=== PATIENT | female | born 2000 | race Caucasian/White ===

== ENCOUNTER 2023-10-19 08:09 | Outpatient (REF) | payer OTHER, SELFPAY ==
[2023-10-19 08:27] LABS: MANUAL DIFF FLAG NO
[2023-10-19 08:52] LABS: Basophils Absolute Auto 0.1 X10*3/uL (0.0-0.2); Basophils Percent Auto 0.6 % (0-2); Eosinophils Absolute Auto 0.3 X10*3/uL (0.0-0.4); Eosinophils Percent Auto 2.8 % (0-4); Hematocrit 32.3 % (37.0-47.0); Hemoglobin 9.2 g/dl (12.0-16.0); Imm Gran Abs Auto 0.03 X10*3/uL (0.00-0.03); Imm Gran Pct Auto 0.3 % (0.0-0.4); Lymphocytes Absolute Auto 2.3 X10*3/uL (1.2-4.9); Lymphocytes Percent Auto 23.8 % (20-40); Mean Corpuscular HGB Conc 28.5 g/dl (31.0-35.0); Mean Corpuscular Hemoglobin 19.8 pg (27.0-33.0); Mean Corpuscular Volume 69.6 fL (80.0-98.0); Mean Platelet Volume 9.8 fL (9.4-12.3); Monocytes Absolute Auto 0.4 X10*3/uL (0.1-1.2); Monocytes Percent Auto 4.5 % (2-11); Neutrophils Absolute Auto 6.5 x10*3/uL (2.0-8.3); Platelet Count 376 X10*3/uL (160-400); Red Blood Count 4.64 X10*6/uL (4.20-5.50); Red Cell Distribution Width 17.5 % (11.0-16.0); White Blood Count 9.5 X10*3/uL (4.8-10.8)
[2023-10-19 09:32] LABS: Alanine Aminotransferase 13 U/L (0-31); Albumin Level 4.1 g/dL (3.5-5.0); Alkaline Phosphatase 90 U/L (39-117); Anion Gap 13 (12-20); Aspartate Amino Transferase 12 U/L (5-31); Bilirubin Total 0.3 mg/dL (0.0-1.0); Blood Urea Nitrogen 13 mg/dL (9-16); Carbon Dioxide 23 mmol/L (22-29); Chloride 109 mmol/L (96-108); Cholesterol 151 mg/dL (<200); Estimated Glomerular Filt Rate > 60; Glucose Fasting 110 mg/dL (60-99); HDL Cholesterol 29 mg/dL (>40); LDL Cholesterol Calculated 100 mg/dL (<100); Sodium 141 mmol/L (135-145); Total Protein 7.4 g/dL (6.5-8.0); Triglycerides 114 mg/dL (<150)
[2023-10-19 09:34] LABS: Estimated Average Glucose 108 mg/dL; Hemoglobin A1c % 5.4 % (<6.0)
[2023-10-19 09:49] LABS: Free T4 (Free Thyroxine) 0.91 ng/dL (0.71-1.85); Thyroid Stimulating Hormone 1.02 uIU/mL (0.32-4.0); Vitamin D 25-OH Total 23.5 ng/mL (>30)
[2023-10-19 09:57] LABS: Vitamin B12 629 pg/mL (200-900)
[2023-10-19 10:12] LABS: Iron 21 mcg/dL (30-160); Percent Iron Saturation 6 % (15-50); Total Iron Binding Capacity 346 mcg/dL (228-428); Unsaturated Iron Binding 325 ug/dL
[2023-10-19 10:14] LABS: Band Neutrophils Percent 4 % (3-5); Basophils Abs Manual 0.1 X10*3/uL (0.0-0.2); Basophils Percent Manual 1 % (0-2); Eosinophils Absolute Manual 0.4 X10*3/uL (0.0-0.4); Eosinophils Percent Manual 4 % (0-4); Lymphocytes Absolute Manual 2.1 X10*3/uL (1.2-4.9); Lymphocytes Percent Manual 22 % (20-40); Monocytes Absolute Manual 0.5 X10*3/uL (0.1-1.2); Monocytes Percent Manual 5 % (2-11); Neutrophils Absolute Manual 6.5 X10*3/uL (2.0-8.3); Neutrophils Percent Manual 64 % (45-73)
[2023-10-19 10:17] LABS: Hypochromasia 1+ (5-14) /OIF; Microcytosis 1+ (5-14) /OIF; Ovalocytes 1+ (5-14) /OIF; RBC Morphology NOTED
[2023-10-19 10:18] LABS: Platelet Estimate NORMAL (NORMAL); Platelet Morphology Comment NORMAL
[2023-10-19 10:23] LABS: Ferritin 5 ng/mL (10-122)
== END 2023-10-19 08:10 | disposition home or self-care (01) ==
LOC: HO.LAB 08:09
PROVIDERS: PCP Nurse Practitioner Family; Visit Provider Psychiatry & Neurology Psychiatry
DX: F32.9 Major depressive disorder, single episode, unspecified (principal); F41.1 Generalized anxiety disorder
CPT/HCPCS: 36415; 80053; 80061; 82306; 82607; 82728; 83036; 83540; 84439; 84443; 85007; 85025

== ENCOUNTER 2023-10-31 10:00 | Outpatient (RCR) | payer OTHER, SELFPAY ==
[2023-10-17 13:25] VITALS: BMI 44.3
[2023-10-17 13:27] VITALS: BP 116/62; PULSE 80; TEMP 37.3
--- NOTE | 2023-10-17 14:50 | PC.ADMIT ---
Patient is a 23 year old female who was [facility] d[facility]t severe depression with persistent SI, denied plan or intent to kill herself, PTSD, and OCD sxs. She is a of the [employer] with a [place]. She reports having no day structure currently, lays on couch and watches tv along with napping throughout the day. Reports she is afraid to sleep d/t nightmares. She reports history of stopping her medications and was recently put back on some of them by her [facility] prescriber. She is taking one online college course currently and having difficulty with that d/t mental health. Currently on medical leave from work at [employer], stating, I had loud mental breakdowns at work and spoke to and took a medical leave . Patient is alert and oriented x4. Calm and cooperative. She presented with depressed mood and anxious affect. Wearing a mask during the assessment as her partner is immune compromised. Regarding SI she stated, My baseline is passive suicidal idealization and SI has not been active since 2020 . Denied any plans of intention of killing herself. She reports her partner is supportive and wants her to be at [facility] for more support. Medications reconciled with patient and patient's pharmacy. She is currently taking medications as prescribed. Patient has a history of heavy alcohol use from [id number] up to 6-7-8 seltzers and shots of vodka anywhere from 4-5 shots daily. Reports she has cut down her use to one drink socially about once a month. Patient also reports taking a total of 100 mg Marijana edibles in divided 10 mg doses spread out throughout the day 3 weeks ago. She does this rarely. Usually uses 20 mg. She also reports having active eating disorder purging her food. Stated the [facility] for her eating disorder however does not want to address this at this time. Patient education provide
--- NOTE | 2023-10-17 15:21 | HO.PHP ---
At 12:30 pm senior mortgage underwriter met with pt to check-in regarding statements she made in group where pt identified passive suicidal thoughts (no plan and denied intent) and expressed she did not have coping skills, has been isolating, felt numb and empty. While meeting, pt elaborated, stated she felt broken from the , feels afraid she will never be like herself again. Stated she did have coping skills but felt unmotivated to use them. Identified herself as stubborn and struggling to change because of it. Pt made insightful comments, showed some self-awareness and expressed a desire to feel better despite not believing it is possible. Pt stated she lives with her partner, identified the relationship as okay and acknowledged it could be better if she communicated more and did not feel this way. Pt was tearful, desiring support and opening up freely when prompted. Pt did state she is safe and agreed to continue at [facility] despite not feeling motivated to be here.
--- NOTE | 2023-10-18 15:47 | HO.PHP ---
At roughly 10:45, business writer pulled pt out of group to check-in due to pt's sobbing and distraught state. Pt was able to calm after a few minutes and shared some of the reasons behind her emotions including lack of sleep and recognizing her depression was severe. Pt reported SI but denied a plan or intent. Pt responded positively to support from business writer. Expressed hopelessness regarding her sadness ever improving, but did acknowledge wanting to feel better despite and feeling she needed to hear. Pt Open to going back to group after roughly 10 minutes, stated she will just listen. Pt agreed not to leave PHP today until she met with the doctor.
--- NOTE | 2023-10-18 16:20 | HO.PHP ---
Client case has been opened and reviewed in team
--- NOTE | 2023-10-18 17:39 | HO.PHP ---
PHP staff member met with Porsche after group three due to her becoming emotional in group. Porsche expressed feelings of hopelessness and noted that she has done programs similar to this and nothing has worked. Porsche acknowledged that she has a lot of skills but does not utilize them. PHP staff member encouraged Porsche while in [facility] to explore effective coping skills and attempt practicing them on a daily basis so she is able to develop that skill of implementing as needed. Porsche was receptive. Porsche also shared she is struggling with her emotions due to lack of sleep yesterday. Porsche noted she signed a waiver for he program that she will not utilize marijuana while in attendance. PHP staff member provided psycho-education on the harm reduction model and also encouraged her to review the education on how marijuana affects ones mental health/physical health. Porsche was receptive. Porsche talked about some medications, in which [facility] staff member directed her to discuss that with the provider here. Porsche was in agreement. Porsche was able to regulate and expressed no concerns.
--- NOTE | 2023-10-18 22:08 | HO.PHPPROGNO ---
Subjective Subjective Date of Service: 10/18/23 Reason For Visit: bipolar,depression Diagnostics Vital Signs (24Hr): BMI result Body Mass Index 44.3 Assessment & Plan Certification I certify that partial hospital treatment is medically necessary due to the symptoms and problems resulting from the patient's mental illness and the failure to treat the patient at the partial hospital level of care would likely result in the patient requiring inpatient psychiatric care which could not be prevented at a less intensive level of care. Total time managing care of this patient today ____ minutes. Discharge Plan Discharge Attending provider: Cristiana Wright Medications: New lamotrigine 25 mg tablet 25 mg PO DAILY 14 Days Qty: 14 0RF metformin 500 mg tablet 250 mg PO BID Qty: 30 0RF lamotrigine 25 mg tablet See Rx Instructions .ROUTE .COMPLEX 30 Days Qty: 50 0RF Rx Instructions: take 1 tablet po daily for 2 weeks, then increase dose to 2 tablets daily lorazepam 0.5 mg tablet 0.25 - 0.5 mg PO BID PRN (Reason: anxiety) Qty: 10 0RF No Action ibuprofen 800 mg tablet 800 mg PO TID trazodone 100 mg tablet 50 mg PO BEDTIME Rx Instructions: Take 1/2 tab at bedtime. gabapentin 300 mg capsule 300 mg PO BID omeprazole 20 mg capsule,delayed release(DR/EC) 20 mg PO DAILY hydroxyzine HCl 25 mg tablet See Rx Instructions .ROUTE .COMPLEX Rx Instructions: Take daily PRN for anxiety and 2 tabs at HS PRN for anxiety/sleep. fluoxetine 20 mg capsule 40 mg PO QAM lurasidone [Latuda] 20 mg tablet 20 mg PO DAILY
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
--- NOTE | 2023-10-22 17:48 | P.PNPSP_ITS ---
Subjective Subjective Date of Service: 10/22/23 Reason For Visit: bipolar,depression Interim History: Still feeling depressed, no change. Endorses passive SI I just keep ruminating on [place] . She relays these are chronic thoughts and says if I was ever going to do anything about it, I would have already done it . 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 She cites her partner as a protective factor and says she is very supportive and caring. She reports they use cannabis to help relax and does not feel it effects her negatively. They had edibles this weekend. She denies any alcohol use. Says she spent most of the time sleeping. She denies having any suicidal thoughts, urge, intention or plan to harm herself. Just feel shitty mood is generally low, worthless, transiently hopeless. Labile, tearful all the time. She has still not received her medications which are in the post. I called the pharmacy but was told that they were going to arrive in 7-10 days. I reorder the Lamcital, Latuda and lorazepam and let them know patient will go to the window to knot picker cloth. She spoke with her partner and they make plan to knot picker cloth meds. I will also order vitamin D and iron supplements. Safety plans reviewed and will plan to check in again later in the week. Medication Compliance: No Side effects from medications: No Attending Groups: Yes Review of Systems Acute medical concerns: No Mental Status Exam Mental Status Exam Narrative: MSE? Alert, oriented, in no acute distress. Sobbing uncontrollably, was a difficult historian at times, mild psychomotor agitation. No eye contact maintained. Mood anxious, depressed affect labile, tearful, dysphoric. Speech normal. Thought process perseverative, linear, coherent. Thought content ruminative, +helplessness, +hopelessness, +passive SI, denies any intention urge or plan to harm herself.? No aggressive ideation or HI. No paranoia or delusional content elicited. Denies AH or VH. No evidence of psychosis. Insight and judgment impaired. Diagnostics Vital Signs (24Hr): BMI result Body Mass Index 44.3 Assessment & Plan Assessment & Plan (1) Bipolar II disorder, severe, depressed, with anxious distress: Status: Acute Code(s): F31.81 - Bipolar II disorder (2) PTSD (post-traumatic stress disorder): Status: Acute Code(s): F43.10 - Post-traumatic stress disorder, unspecified (3) Cannabis abuse: Status: Acute Code(s): F12.10 - Cannabis abuse, uncomplicated Plan continue Lamictal 25 mg qd (will increase by 25 mg q 2weeks until at 100 mg/d) continue lurasidone 40 mg x 2 days (then to 60 mg/d w evening meal) continue metformin 250 mg BID continue lorazepam 0.5 mg qd prn daytime anxiety (namely for program/groups) in lieu may continue hydroxyzine 25 mg PRN anxiety (AE:sedation) fluoxetine 40 mg qd (since 2021) gabapentin 300 mg BID omeprazole 20 mg qd trazodone 50 mg qhs Reviewed routine lab work - low HDL - reviewed diet/lifestyle changes will start iron supplements for Fe def anemia, start vitamin D3 5000 IU for Vit D insufficiency UDS and EKG as indicated reviewed safety planning continue to monitor Patient educated on: diagnosis, medication risk/benefits and substance abuse Informed Consent: understands Reason for contiued partial hosp. stay Substantial Risk for: inability to function, rapid decompensation and med/psych decompensation Certification I certify that partial hospital treatment is medically necessary due to the symptoms and problems resulting from the patient's mental illness and the failure to treat the patient at the partial hospital level of care would likely result in the patient requiring inpatient psychiatric care which could not be prevented at a less intensive level of care. Total time managing care of this patient today __40__ minutes. Discharge Plan Discharge Attending provider: Cristiana Wright Medications: New metformin 500 mg tablet 250 mg PO BID Qty: 30 0RF Hold Instructions: Resume on 11/16/23. will revisit with OP provider lamotrigine 25 mg tablet See Rx Instructions .ROUTE .COMPLEX 30 Days Qty: 50 0RF Hold Instructions: Resume on 11/16/23. will discuss whether to restart with OP provider Rx Instructions: take 1 tablet po daily for 2 weeks, then increase dose to 2 tablets daily lurasidone 40 mg tablet 40 mg PO QPM 30 Days Qty: 30 0RF Hold Instructions: Resume on 11/16/23. pt returned dose to 20 mg, will f/u w provider Rx Instructions: with evening meal - must administer with food (at least 350 calories); patient to knot picker cloth at window ferrous sulfate 324 mg (65 mg iron) tablet,delayed release (DR/EC) 324 mg PO DAILY 30 Days Qty: 30 0RF Rx Instructions: Take with a full glass of water 1 hour before or 2 hours after meals. If upset occurs, you may take this with food. Avoid taking antacids, dairy products, tea, or coffee within 2 hours. =patient to knot picker cloth at window= Continued trazodone 100 mg tablet 50 mg PO BEDTIME Rx Instructions: Take 1/2 tab at bedtime. gabapentin 300 mg capsule 300 mg PO BID omeprazole 20 mg capsule,delayed release(DR/EC) 20 mg PO DAILY hydroxyzine HCl 25 mg tablet See Rx Instructions .ROUTE .COMPLEX Rx Instructions: Take daily PRN for anxiety and 2 tabs at HS PRN for anxiety/sleep. fluoxetine 20 mg capsule 40 mg PO QAM No Action ibuprofen 800 mg tablet 800 mg PO TID lurasidone [Latuda] 20 mg tablet 20 mg PO DAILY Stand Alone Forms: Patient Portal Discharge page Patient Education: Post Traumatic Stress Disorder (DC) Print Language: Romanian
--- NOTE | 2023-10-23 15:31 | PC.NURSE ---
Dr Wright is aware of Porsche's lab results completed on 10/19/23 and will order iron supplement as a result.
--- NOTE | 2023-10-24 15:56 | HO.PHP ---
At roughly 12pm promotion writer checked in with Ana (who goes by Carmel ). Pt was not in group, was sitting alone in the dayroom. Pt shared she had an emotionally difficult day after leaving [facility] yesterday, felt triggered and overwhelmed with negative thoughts. Shared she went to the [place] to see her psychiatrist and they both agreed this program may not be for her. Pt shared her reasons why, including her social anxiety, and group cause her to think of difficult experiences and emotions from her past. Pt stated this is pointless and nothing helps , feels she will not be healed from her trauma experienced in the [employer]. Pt could not identify alternative sources of support that she would be open to if she left [facility], except for her OP therapy and OP psychiatrist. Pt declined needing a higher level of care. Pt stated if she left she would continue to isolate so agreed to stay at [facility] because if had more benefits then the alternative staying home and isolating . States she will meet with her therapist tomorrow and will ask if she can add an extra session a week. Pt was also encouraged to focus on staying present when in group, not to address trauma to avoid being triggered and/or retaumatized but to focus on building skills that can help her now and discuss issues affecting her currently. Pt agreed to continue at [facility], and said she will take it one day at a time, will take 5 minute breaks from group if feeling triggered and will check in with staff if she feels she is declining. At 2:00pm promotion writer checked in with Carmel again to assess for safety before leaving for the day. Pt stated I'm safe , I do not want to . Acknowledge she continues to experience passive SI daily but denies intent to act on it and denies a plan. Pt apologized to staff for not engaging in groups this morning and for wanting to leave, stated she felt she needed to be here and needed the JORGE group. Pt added that when she has an especially difficult emotional day she often feels exhausted the next day. Pt was future-oriented. appreciative for staff support.
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
--- NOTE | 2023-10-29 12:07 | HO.PHP ---
Carmel was observed crying during group 2 of the morning. This t/w was notified and went to pull Carmel into a private space to talk. This staff inquired about process group and what 'an episode' looks like for her. She stated, it's not really anything, just highs and lows. Pt confirmed she would never do anything. T/w provided patient with validation on the progress of showing up and staying in groups without leaving surrounding triggering details for her. Social supports such as her partner and not isolating currently were incorporated into the discussion providing some reflection on that. Carmel stated that she feels like she will never be better. She relayed her anger and guilt for being a part of the . She reflected that she was in the from age [age], and this t/w reassured her that that was an influential time in her life and that it is valid to feel the way she is. 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 This t/w focused on the positive components of the pt's life and kept redirecting negative self talk. Carmel became less tearful and was ready to join group 3 at the end of our discussion.
--- NOTE | 2023-10-30 14:21 | HO.PHP ---
PHP staff member followed up with Porsche after group three, in which she answered the 7 questions. Porsche mentioned this morning she is not feeling real and still is currently feeling the same. Porsche disclosed she felt she met her goal of talking in the doctor but not in the groups. Porsche identified coping skills to be music. Porsche reported passive SI without a plan or intent. Porsche expressed she wouldn't act or plan anything because of her girlfriend. After program, Porsche is going to go to sleep. Porsche has therapeutic supports in place for discharge. Porsche was encouraged to engage in conversation within the group setting. Porsche expressed she is going to try.
--- NOTE | 2023-10-30 22:49 | P.PNPSP_ITS ---
Subjective Subjective Date of Service: 10/30/23 Reason For Visit: bipolar,depression Interim History: Reports imprpvement in vertigo, also notes not crying as much. She reports that she increases the dose from 1/2 tablet to one tablet and has been taking 40 mg of Latuda and denies any adverse effects. Has been taking with food. Was more candid about eating disordered behaviors, she purged yesterday around 3pm. She waited to have Gentry later and has been keeping down the Latuda. She still endorses passive SI constantly , no change. Denies any intention or plan to harm self. SHe seems more relaxed but also less serious about group therapy and treatment in general. She says she generally can only be complaint medicaitons for brief stimnts of time and then starts forgetting to take them. We discuss TMS as a possible treatment option, especially if patient has compliance issues. as well as EMDR and DBT, She indicates that this sounds interesting but I'm not there yet She was given a pamphlet and invited to discuss further if she wishes, and certainly we can discuss in more detail if she wishes, but patient declines but makes unrelated comments about the pamphelet. Endorses passive SI without intention or plan. Contniues to restrict but does eat 1-2 meals a day. Medication Compliance: Yes Side effects from medications: No Attending Groups: Yes Review of Systems Acute medical concerns: No Mental Status Exam Mental Status Exam Narrative: MSE? Alert, oriented, in no acute distress. Sobbing uncontrollably, was a difficult historian at times, mild psychomotor agitation. No eye contact maintained. Mood anxious, depressed affect somebrightening, less labile, no tearfulness today. Speech normal. Thought process perseverative, linear, coherent. Thought content relevant to stressors, transient hopelessness, passive SI, denies any intention urge or plan to harm herself.? No aggressive ideation or HI. No paranoia or delusional content elicited. Denies AH or VH. No evidence of psychosis. Insight and judgment impaired. Diagnostics Vital Signs (24Hr): BMI result Body Mass Index 44.3 Assessment & Plan Assessment & Plan (1) Bipolar II disorder, severe, depressed, with anxious distress: Status: Acute Code(s): F31.81 - Bipolar II disorder (2) PTSD (post-traumatic stress disorder): Status: Acute Code(s): F43.10 - Post-traumatic stress disorder, unspecified (3) Cannabis abuse: Status: Acute Code(s): F12.10 - Cannabis abuse, uncomplicated Plan continue Lamictal 25 mg qd (will increase by 25 mg q 2weeks until at 100 mg/d) continue lurasidone 40 mg w evening meal continue metformin 250 mg BID continue lorazepam 0.5 mg qd prn daytime anxiety (namely for program/groups) in lieu continue hydroxyzine 25 mg PRN anxiety (AE:sedation) continue fluoxetine 40 mg qd (since 2021) pt wants to remain at 40 mg not regular with gabapentin 300 mg BID continue omeprazole 20 mg qd continue iron supplements for Fe def anemia, continue vitamin D3 5000 IU for Vit D insufficiency UDS and EKG as indicated reviewed safety planning continue to monitor Patient educated on: diagnosis, medication risk/benefits, substance abuse, TMS and therapeutic strategies Informed Consent: understands Reason for contiued partial hosp. stay Substantial Risk for: rapid decompensation and med/psych decompensation Certification I certify that partial hospital treatment is medically necessary due to the symptoms and problems resulting from the patient's mental illness and the failure to treat the patient at the partial hospital level of care would likely result in the patient requiring inpatient psychiatric care which could not be prevented at a less intensive level of care. Total time managing care of this patient today __30__ minutes. Discharge Plan Discharge Attending provider: Cristiana Wright Medications: New metformin 500 mg tablet 250 mg PO BID Qty: 30 0RF Hold Instructions: Resume on 11/16/23. will revisit with OP provider lamotrigine 25 mg tablet See Rx Instructions .ROUTE .COMPLEX 30 Days Qty: 50 0RF Hold Instructions: Resume on 11/16/23. will discuss whether to restart with OP provider Rx Instructions: take 1 tablet po daily for 2 weeks, then increase dose to 2 tablets daily lurasidone 40 mg tablet 40 mg PO QPM 30 Days Qty: 30 0RF Hold Instructions: Resume on 11/16/23. pt returned dose to 20 mg, will f/u w provider Rx Instructions: with evening meal - must administer with food (at least 350 calories); patient to pear picker at window ferrous sulfate 324 mg (65 mg iron) tablet,delayed release (DR/EC) 324 mg PO DAILY 30 Days Qty: 30 0RF Rx Instructions: Take with a full glass of water 1 hour before or 2 hours after meals. If upset occurs, you may take this with food. Avoid taking antacids, dairy products, tea, or coffee within 2 hours. =patient to pear picker at window= Continued trazodone 100 mg tablet 50 mg PO BEDTIME Rx Instructions: Take 1/2 tab at bedtime. gabapentin 300 mg capsule 300 mg PO BID omeprazole 20 mg capsule,delayed release(DR/EC) 20 mg PO DAILY hydroxyzine HCl 25 mg tablet See Rx Instructions .ROUTE .COMPLEX Rx Instructions: Take daily PRN for anxiety and 2 tabs at HS PRN for anxiety/sleep. fluoxetine 20 mg capsule 40 mg PO QAM No Action ibuprofen 800 mg tablet 800 mg PO TID lurasidone [Latuda] 20 mg tablet 20 mg PO DAILY Stand Alone Forms: Patient Portal Discharge page Patient Education: Post Traumatic Stress Disorder (DC) Print Language: Greenlandic
--- NOTE | 2023-11-02 09:58 | P.PNPSP_ITS ---
Subjective Subjective Date of Service: 11/02/23 Reason For Visit: bipolar,depression Interim History: Patient spoke with staff and has decided to discharge from program. She feels program is too overstimulating and feels it is negatively effecting her. She spoke with her therapist and he is able to do EMDR and DBT with her. She feels she does better one on one than in groups. Apparently she has not been utilizing groups well, and in fact the past 2 times I came to get her from groups she was scrolling on her phone instead of paying attention to groups discussion. She appears calmer and less labile. She is not tearful today and presents as brighter, although still endorsing depressed mood and chronic passive SI. I take some time to review her developmental and academic history (grew up in [place] average C student, struggled acaedmically, failed some HS classes including an AP [place] class), as clinically she does present as possibly have attentional issues and I strongly recommend undergoing neuropsych testing for ADHD. Social difficulties also may have risen from frequent moves with being in a family. Today she presents in good spirits and was quite conversant during our session. Reports no acute issues or concerns. Medication compliant, medications well- tolerated. Denies any adverse effects.? Mood is dythymic but stable.? Denies any hopelessness or active SI. Denies thoughts of harming self or others at this time. Denies any aggressive ideation or HI. Denies any paranoia or AH or VH. Sleep, appetite, energy stable. Medication Compliance: Yes Side effects from medications: No Attending Groups: Yes Review of Systems Acute medical concerns: No Mental Status Exam Mental Status Exam Narrative: Alert, oriented, in no acute distress. Calm, cooperative. Mood is dysthymic, affect variable, brighter, no lability noted. ? Speech normal. Thought process linear, coherent, more goal-directed. Thought content related to stressors, future-oriented, Denies any hopelessness or active SI. Denies thoughts of harming self or others at this time. Denies any aggressive ideation or HI. Denies any paranoia or AH or VH. No paranoia or delusional content elicited. No evidence of psychosis. Insight and judgment fair. Diagnostics Vital Signs (24Hr): BMI result Body Mass Index 44.3 Assessment & Plan Assessment & Plan (1) Bipolar II disorder, severe, depressed, with anxious distress: Status: Acute Code(s): F31.81 - Bipolar II disorder (2) PTSD (post-traumatic stress disorder): Status: Acute Code(s): F43.10 - Post-traumatic stress disorder, unspecified (3) Cannabis abuse: Status: Acute Code(s): F12.10 - Cannabis abuse, uncomplicated Plan Discharge from [facility] continue regular medications Sees therapist later today will defer further medication management to outpatient provider Refills sent to pharmacy Patient educated on: diagnosis, medication risk/benefits, substance abuse, TMS and medical condition (EDB, caloric restriction ) Informed Consent: understands Reason for contiued partial hosp. stay Substantial Risk for: stable for discharge Certification I certify that partial hospital treatment is medically necessary due to the symptoms and problems resulting from the patient's mental illness and the failure to treat the patient at the partial hospital level of care would likely result in the patient requiring inpatient psychiatric care which could not be prevented at a less intensive level of care. Total time managing care of this patient today __60__ minutes. Discharge Plan Discharge Attending provider: Cristiana Wright Medications: New metformin 500 mg tablet 250 mg PO BID Qty: 30 0RF Hold Instructions: Resume on 11/16/23. will revisit with OP provider lamotrigine 25 mg tablet See Rx Instructions .ROUTE .COMPLEX 30 Days Qty: 50 0RF Hold Instructions: Resume on 11/16/23. will discuss whether to restart with OP provider Rx Instructions: take 1 tablet po daily for 2 weeks, then increase dose to 2 tablets daily lurasidone 40 mg tablet 40 mg PO QPM 30 Days Qty: 30 0RF Hold Instructions: Resume on 11/16/23. pt returned dose to 20 mg, will f/u w provider Rx Instructions: with evening meal - must administer with food (at least 350 calories); patient to continuous pickling line pickler helper at window ferrous sulfate 324 mg (65 mg iron) tablet,delayed release (DR/EC) 324 mg PO DAILY 30 Days Qty: 30 0RF Rx Instructions: Take with a full glass of water 1 hour before or 2 hours after meals. If upset occurs, you may take this with food. Avoid taking antacids, dairy products, tea, or coffee within 2 hours. =patient to continuous pickling line pickler helper at window= Continued trazodone 100 mg tablet 50 mg PO BEDTIME Rx Instructions: Take 1/2 tab at bedtime. gabapentin 300 mg capsule 300 mg PO BID omeprazole 20 mg capsule,delayed release(DR/EC) 20 mg PO DAILY hydroxyzine HCl 25 mg tablet See Rx Instructions .ROUTE .COMPLEX Rx Instructions: Take daily PRN for anxiety and 2 tabs at HS PRN for anxiety/sleep. fluoxetine 20 mg capsule 40 mg PO QAM No Action ibuprofen 800 mg tablet 800 mg PO TID lurasidone [Latuda] 20 mg tablet 20 mg PO DAILY Stand Alone Forms: Patient Portal Discharge page Patient Education: Post Traumatic Stress Disorder (DC) Print Language: Mauritanian
== END 2023-11-02 23:59 | disposition home or self-care (01) ==
LOC: HO.PHPA 10:00
PROVIDERS: Visit Provider Psychiatry & Neurology Psychiatry
DX: F31.81 Bipolar II disorder (principal); F43.10 Post-traumatic stress disorder, unspecified; Z79.899 Other long term (current) drug therapy
CPT/HCPCS: 90791; 90853

== ENCOUNTER → 2023-10-31 10:00 | Outpatient (BNV) | payer OTHER, SELFPAY | PROVIDERS: Visit Provider Psychiatry & Neurology Psychiatry | DX: F31.81 Bipolar II disorder (principal); F43.10 Post-traumatic stress disorder, unspecified; F12.10 Cannabis abuse, uncomplicated | CPT/HCPCS: 90792; 99213; 99214 ==